=== PATIENT | female | born 1930 | race Caucasian/White ===

== ENCOUNTER → 2018-08-29 11:51 | Day surgery (SDC) | payer MEDICARE, BC ==
[~2018-08-29 11:51] MED LIST: Buffered Lidocaine 1% SYRIN* 1 ML/SYRINGE INTRADERM ONE; Dexamethasone IV* 4 MG/ML 1 ML (4 MG) IV SLOW PU ONE; Dexamethasone IV* 4 MG/ML 1 ML (4 MG) ONE; Famotidine IV* 10 MG/ML 2 ML (20 mg) IV ONE; Famotidine IV* 10 MG/ML 2 ML (20 mg) ONE; Lactated Ringers 1000 ML Bag* 1,000 ML IV SCH; Midazolam* 1 MG/ML 2 ML VIAL (2 MG) ONE; Propofol* 10 MG/ML 20 ML BTL ONE; ceFAZolin 2 GM in NS PREMIX(*) 2 GM/100 ML BAG IVPB ONE; fentaNYL* 50 MCG/ML 2 ML VIAL (100 MCG VIAL) ONE
[2018-08-29 17:25] VITALS: BP 166/74
== END | disposition home or self-care (01) ==
LOC: OR 11:51
PROVIDERS: ATTEND Plastic Surgery
DX: C44.729 Squamous cell carcinoma of skin of left lower limb, including hip (principal); L98.8 Other specified disorders of the skin and subcutaneous tissue; I10 Essential (primary) hypertension; M81.0 Age-related osteoporosis without current pathological fracture; I47.1 Supraventricular tachycardia; Z85.820 Personal history of malignant melanoma of skin
CPT/HCPCS: 88305; 88331; 88332; J0690; J1100; J2250; J2704; J3010

== ENCOUNTER 2018-10-28 16:40 | Observation (INO) | payer MEDICARE, BC ==
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
[2018-10-28 17:52] LABS: Albumin 3.9 g/dL (3.2-5.2); Albumin/Globulin Ratio 1.3 (1-3); Calcium 9.1 mg/dL (8.6-10.3); EGFR African American 49.7 (>60); EGFR Non-African American 41.1 (>60); Globulin 3.1 g/dL (2-4); Potassium 3.7 mmol/L (3.5-5.0); Total Bilirubin 0.5 mg/dL (0.2-1.0)
[2018-10-28 17:54] LABS: Activated Partial Thrombo Time 60.1 seconds (26.0-36.3); INR 1.38 (0.82-1.09)
[2018-10-28 18:04] LABS: ABS Lymphocytes 0.6 10^3/ul (1.0-4.8); ABS Monocytes 0.4 10^3/ul (0-0.8); ABS Neutrophils 4.2 10^3/ul (1.5-7.7); Eosinophil % 0.6 %; Hematocrit 41 % (35-47); Hemoglobin 13.2 g/dL (12.0-16.0); Lymphocyte % 11.9 %; Mean Corpuscular HGB Conc 32 g/dL (31-36); Mean Corpuscular Hemoglobin 29 pg (27-31); Mean Corpuscular Volume 90 fL (80-97); Mean Platelet Volume 7.1 fL (7.4-10.4); Platelet Count 269 10^3/uL (150-450); Red Blood Count 4.54 10^6 /uL (3.70-4.87); Red Cell Distribution Width 15 % (10.5-15); White Blood Count 5.3 10^3/uL (3.5-10.8)
[2018-10-28] MEDS ORDERED: NS 0.9% 1000 ML** 1,000 ML IV ONE (18:16)
[2018-10-28 18:30] LABS: Urine Appearance Clear; Urine Bacteria Absent (Absent); Urine Bilirubin Negative (Negative); Urine Blood Negative (Negative); Urine Color Yellow; Urine Glucose Negative (Negative); Urine Ketones Trace (Negative); Urine Nitrite Negative (Negative); Urine Protein Negative (Negative); Urine Red Blood Cell 2+(6-10/hpf) (Absent); Urine Specific Gravity 1.009 (1.010-1.030); Urine Urobilinogen Negative (Negative); Urine White Blood Cell Trace(0-5/hpf) (Absent)
[2018-10-28] MEDS ORDERED: Meclizine TAB* 12.5 MG PO ONE (19:07)
[2018-10-28] MEDS ORDERED: NS 0.9% 1000 ML** 1,000 ML IV SCH (22:30)
--- NOTE | 2018-10-29 02:29 | HP ---
CC: Dr. Osman* HISTORY AND PHYSICAL: DATE OF ADMISSION: 10/28/18 PRIMARY CARE PROVIDER: Dr. Osman. ATTENDING PHYSICIAN: Dr. Altamirano* (dictated by CEE Calvillo). CHIEF COMPLAINT: 1. "I was back in AFib." 2. Dizziness. HISTORY OF PRESENT ILLNESS: Ms. Seaman is an 88-year-old female with a past medical history of atrial fibrillation, on rate control agents, Pradaxa, with most recent cardioversion 08/19/18 and hypertension, who presented to the ER today with complaints of dizziness and intermittent AFib since this morning. The patient states that in the past that she would occasionally feel as if she was in AFib when she wakes in the a.m. She states that she has a "turmoil in my chest" and can feel herself go in and out of AFib. Since the most recent cardioversion in August, the patient has not noticed this feeling. Today, she states she woke and sat on the edge of her bed and began to feel that feeling. She also notes that she has increased dizziness today. She states that this mostly started to occur today; yesterday, she states she bent over and when she stood back up, she was dizzy but the feeling dissipated. Today, she states she is dizzy when going from lying to sitting, sitting to standing or from standing to sitting. She notes that this is not exacerbated by head movements. She does not feel as if the room is spinning. She denies presyncope or loss of consciousness. She denies nausea or vomiting or headache. She denies feeling as if the room is spinning. She notes that she does have tinnitus, although she notes that this is chronic. She denies chest pain, shortness of breath, fever, cough, sore throat, or diarrhea. She denies previous history of dizziness. She denies exposure to recent illness. She denies falling recently. She does note that she is unsteady on her feet which has caused her to refrain from attempting ambulation, it is noted that she typically walks with a cane. She also notes that she has had increased fatigue. The patient states that she tries to stay hydrated stating that she tries to drink 8 tea cups of fluid per day in the form of milk or water. She has good p.o. intake of fluid and food. She notes that recently she has been taken off her flecainide; this occurred in August, her diltiazem dose was halved at this time and amiodarone was added. In the emergency department, the patient received a workup, which included chest x- ray, head CT, and EKG. She also received 1 L of IV fluids and meclizine. Her symptoms are slowly resolving. She currently is not experiencing any dizziness , although it is noted that she has not attempted to ambulate recently. The hospitalist team was asked to evaluate the patient for admission. PAST MEDICAL HISTORY: 1. Atrial fibrillation, most recent cardioversion 08/19/18. 2. Hypertension. 3. GERD. 4. Arthritis. 5. Squamous cell carcinoma removed 08/21/18. PAST SURGICAL HISTORY: Appendectomy, removal of polyp from ovary, left femur, bilateral tib-fib, left ulna, and right cataract. HOME MEDICATIONS: 1. Amiodarone 200 mg p.o. daily. 2. Cholecalciferol 1000 units p.o. q.a.m. 3. Dabigatran 150 mg p.o. b.i.d. 4. Diltiazem 120 mg p.o. q.a.m. 5. Enalapril maleate 10 mg p.o. b.i.d. 6. Multivitamin 1 tab p.o. daily. 7. Potassium chloride tab 10 mEq p.o. t.i.d. DRUG ALLERGIES: DIAZEPAM, INDOMETHACIN, LATEX, METOPROLOL, PROPOXYPHENE. FAMILY HISTORY: Positive for hypertension and Parkinson's. Negative for heart disease, CVA, cancer, or diabetes. SOCIAL HISTORY: The patient denies current and former use of tobacco. She no longer drinks alcohol. She lives with her . She is retired. In the event that she is not able to make her own medical decision, she has appointed her , Melvin Seaman, to be her surrogate decision maker. REVIEW OF SYSTEMS: A 10-point review of systems was performed and all the pertinent positives and negatives are in the HPI. All other systems are negative. PHYSICAL EXAMINATION GENERAL: Ms. Seaman is a well-developed, well-nourished, older white woman, who is sitting up in bed. She is in no acute distress. She is cooperative and appropriate. VITAL SIGNS: Temperature 99.4 temporal, heart rate , respiratory rate ____ _, oxygen saturation , blood pressure . HEENT: Visual graham are grossly intact. PERRL. EOMI. Sclerae are without icterus. Hearing grossly intact. Oral mucous membranes are somewhat dry. There are no lesions. Pharynx is clear. RESPIRATORY: Symmetrical chest expansion without use of accessory muscles. Lungs are clear to auscultation. There are no rhonchi, wheezes, or rubs. CARDIOVASCULAR: Regular rate and rhythm with S1, S2 present. There is a systolic murmur. There are no rubs or gallops. There is no JVD. ABDOMEN: Bowel sounds noted in all quadrants. The abdomen is soft. There is no tenderness to palpation, there is no hepatosplenomegaly. MUSCULOSKELETAL: Full range of motion. The patient has scoliosis. EXTREMITIES: Skin is warm and smooth bilaterally. There is no clubbing, cyanosis, or edema. Radial and pedal pulses are palpable. The left lower extremity is wrapped, when unwrapped, there is an anterior leg wound from squamous cell carcinoma removal in August. The area is moist with a white moist scab. There is no erythema, purulent drainage or foul smell. The leg was rewrapped. NEURO: The patient is awake. She is alert and oriented x3. Cranial nerves are grossly intact. She is able to move all of her extremities. Motor strength is 5/5 in the upper and lower extremities. DIAGNOSTIC STUDIES/LAB DATA: Chest x-ray, 10/28/18, impression: Cardiomegaly , COPD. Brain CT, 10/28/18, impression: No acute intracranial pathology. BUN 27, creatinine 1.23, BUN/creatinine 22, all others within normal limits. ASSESSMENT AND PLAN: Ms. Seaman is an 88-year-old female with a past medical history of atrial fibrillation, with cardioversion in August of 2018; hypertension, who presents to the ER today with complaints of atrial fibrillation with rapid ventricular response and dizziness. The patient will be admitted on observation for the following. 1. Atrial fibrillation with rapid ventricular response. The patient appears to have converted at this point. She is rate controlled. Her rhythm appears to be regular. She also reports resolution in the abnormal feelings in her chest that occur when she is in atrial fibrillation with rapid ventricular response. The patient will be admitted on telemetry. She will continue her home medications. 2. Dizziness. The patient notes dizziness with changes in body position. She denies dizziness with changes in the position of the head. She has positive orthostatic changes. Differential includes orthostatic hypotension, dehydration , vertigo is less likely, but benign paroxysmal positional vertigo is still in the differential. Physical therapy ordered with request for Golden maneuver in the morning. Repeat orthostatics in the morning. The patient will continue IV hydration with repeat of orthostatics in the morning. 3. Squamous cell carcinoma removal on 08/21/18, daily dressing changes to left lower extremity. The patient has followup with Dr. Velasquez next month. 4. Hypertension. Continue home medications. 5. FEN. IV fluids at 125 cc per hour overnight, heart-healthy diet. 6. DVT prophylaxis. Based on the DVT risk assessment, the patient scores 3 and is placed in the high-risk category. She is currently on Pradaxa which will be continued throughout her stay. TIME SPENT: Approximately 60 minutes was spent on this admission, greater than half that time was spent with the patient obtaining history, performing physical and reviewing the plan of care. The case has been reviewed with my attending, Dr. Altamirano, who is in agreement with the plan of care. CEE NICHOLSON [id number]/[facility] #: [id number] MTDKam
[2018-10-29 06:43] LABS: Albumin 3.1 g/dL (3.2-5.2); Albumin/Globulin Ratio 1.3 (1-3); BUN/Creatinine Ratio 21.8 (8-20); Calcium 7.8 mg/dL (8.6-10.3); EGFR African American 62.4 (>60); EGFR Non-African American 51.6 (>60); Globulin 2.4 g/dL (2-4); Potassium 3.4 mmol/L (3.5-5.0); Total Bilirubin 0.5 mg/dL (0.2-1.0); Total Protein 5.5 g/dL (6.4-8.9)
[2018-10-29] MEDS ORDERED: Diltiazem CD CAP* 120 MG PO SCH (09:00)
[2018-10-29] MEDS ORDERED: Enalapril TAB* 5 MG PO SCH (09:00)
[2018-10-29] MEDS ORDERED: Amiodarone TAB* 200 MG PO SCH (09:00)
[2018-10-29] MEDS ORDERED: CMC:Dabigatran CAP(NF) 75 MG CAP PO SCH (09:00)
[2018-10-29] MEDS ORDERED: Vitamin THERAPEUTIC TAB PO SCH (09:00)
[2018-10-29] MEDS ORDERED: Potassium Chlor TAB* 20 MEQ TAB.ER PO ONE (09:10)
[2018-10-29 12:33] VITALS: BP 140/52
--- NOTE | 2018-10-29 19:48 | DS ---
CC: Dr. Osman; Dr. Young* DISCHARGE SUMMARY: DATE OF ADMISSION: 10/28/18 DATE OF DISCHARGE: 10/29/18 PRIMARY CARE PROVIDER: Dr. Osman. DISCHARGE DIAGNOSES: 1. Dizziness likely due to benign positional vertigo. 2. Paroxysmal atrial fibrillation, spontaneously converted. SECONDARY DIAGNOSES: 1. History of atrial fibrillation with most recent cardioversion in August 2018. 2. History of hypertension. 3. History of gastroesophageal reflux disease. 4. Arthritis. 5. History of squamous cell carcinoma removed from the lower leg on 08/21/18 on the left side. MEDICATIONS AT DISCHARGE: Unchanged from admission include: 1. Amiodarone 200 mg daily. 2. Vitamin D3 1000 units daily. 3. Pradaxa 75 mg a day, which is a new, changed according to the patient's GFR dose. 4. Diltiazem CD 120 mg daily. 5. Enalapril 10 mg b.i.d. 6. Multivitamin 1 tablet a day. 7. Potassium chloride 10 mEq 3 times a day. LABORATORY DATA AND STUDIES PERFORMED DURING THE HOSPITAL STAY: On 10/29/18, sodium of 141, potassium 3.4, chloride 107, carbon dioxide 27, BUN 22, creatinine 1.01. Liver function test unremarkable. Brain CT, impression: "No acute intracranial pathology. Other chronic findings as above." Portable chest x-ray, impression: "Cardiomegaly, COPD." HOSPITALIZATION COURSE: Elizabet Seaman is an 88-year-old female with history of paroxysmal atrial fibrillation for which she was cardioverted several times in the past 6 months and presented with an episode of atrial fibrillation from which she converted spontaneously at admission. The patient also had had troubles with dizziness that is likely due to benign positional vertigo. She was more dizzy with an episode of atrial fibrillation and that resolved once the atrial fibrillation converted to a sinus rhythm. After evaluation of physical therapy, it was recommended for the patient to schedule an appointment at [facility] Physical Therapy and physical therapist, specifically, Jesus Yancey, who does vestibular physical therapy. She is also asked to ambulate with the use of a cane which she normally does. It also occurs that the patient may have been slightly dehydrated at admission and that resolved with intravenous fluids. The patient's creatinine at baseline is slightly increased and her GFR had been in the range of 35 to 51 in the past several years and this is after discussion with our pharmacist, the patient's Pradaxa dose was decreased to 75 mg b.i.d. PHYSICAL EXAM AT TIME OF DISCHARGE: Blood pressure of 140/52, heart rate of 51 and regular, respiratory rate 16, oxygen saturation 97% on room air, temperature 98.3. General: The patient is a very pleasant 88-year-old female who is in no acute distress. Alert, awake, and oriented x3. HEENT: Head: Atraumatic, normocephalic. Eyes: Pupils are equal, reactive to light and accommodation. Oropharynx is clear. Mucosa moist. Neck: Supple. No JVD. No bruits bilaterally. Cardiovascular: Regular rate and rhythm with 2/6 systolic ejection murmur. Abdomen: Soft, nontender. Bowel sounds are present in all 4 quadrants. Extremities: There is trace left ankle edema. Pulses +2 bilaterally. No clubbing or cyanosis. On evaluation of the skin, the patient has chronic wound that is under the care of plastic surgeon on the left anterior distal lower extremity. The ulceration is approximately 3 cm in diameter, stage II and is not cellulitic. DISPOSITION AT DISCHARGE: To home. CONDITION AT DISCHARGE: Stable. Please note that this is a short summary of the patient's hospital stay. Please refer to further medical records for details. TIME SPENT: Approximately 35 minutes was spent on the patient's discharge. [id number]/[facility] #: [id number] MTDD
== END 2018-10-29 15:16 | disposition home or self-care (01) ==
LOC: ED 16:40 → MEDTELE 21:58
PROVIDERS: ADMIT Student in an Organized Health Care Education/Training Program; ATTEND Internal Medicine
DX: R42 Dizziness and giddiness (principal); I48.0 Paroxysmal atrial fibrillation; I10 Essential (primary) hypertension; K21.9 Gastro-esophageal reflux disease without esophagitis; M19.90 Unspecified osteoarthritis, unspecified site; Z85.828 Personal history of other malignant neoplasm of skin; Z79.899 Other long term (current) drug therapy; J44.9 Chronic obstructive pulmonary disease, unspecified; I51.7 Cardiomegaly; E78.5 Hyperlipidemia, unspecified
CPT/HCPCS: 36415; 70450; 71045; 80053; 81003; 81015; 83605; 83735; 84484; 85025; 85610; 85730; 87086; 93005; 96360; 96361; 99283; A9270-GY; G0378; G8978-GP-CI; G8979-GP-CI